=== PATIENT | female | born 1975 | race African-American/Black ===

== ENCOUNTER 2018-09-08 16:00 | Observation (INO) ==
[2018-09-08 17:22] LABS: INR 0.97; PROTIME 13.4 Seconds (11.0-16.0)
[2018-09-08 17:27] LABS: BASO# 0.02 X1000 (0.0-0.2); BASO% 0.3 % (0.0-0.8); EOS# 0.17 X1000 (0.0-0.7); EOS% 2.9 % (0.0-10.0); HEMATOCRIT 35.1 % (37.0-47.0); HEMOGLOBIN 11.6 g/dL (12.0-16.0); IMM GRAN# 0.03 X1000 (0.0-0.04); IMM GRAN% 0.5 % (0.0-0.5); LYMPH# 2.14 X1000 (1.2-3.4); LYMPH% 36.7 % (20.5-51.1); MCH 24.7 PG (27-31); MCV 74.8 FL (81-99); MONO# 0.48 X1000 (0.11-0.59); MONO% 8.2 % (1.7-9.3); MPV 10.6 FL (7.4-10.4); NEUT# 2.99 X1000 (1.4-6.5); NEUT% 51.4 % (42.2-75.2); PLT 333 X1000 (130-400); RBC 4.69 XMIL (4.2-5.4); WBC 5.83 X1000 (4.8-10.8)
[2018-09-08 17:34] LABS: CALCIUM 9.1 mg/dL (8.8-10.2); CREATININE 1.9 mg/dL (0.5-0.9); POTASSIUM 3.8 mmol/L (3.5-5.1); TOTAL BILIRUBIN 0.2 mg/dL (0.20-1.00); TOTAL PROTEIN 7.2 g/dL (6.3-8.3)
[2018-09-08] MEDS ORDERED: NS 500 ML IV ONE (17:47)
[2018-09-08] MEDS ORDERED: REGLAN IV ONE (17:48)
[2018-09-08] MEDS ORDERED: DECADRON IV ONE (17:48)
[2018-09-08] MEDS ORDERED: TORADOL IM ONE (17:48)
--- NOTE | 2018-09-08 17:49 | Diag Imaging Result Doc PS360 ---
EXAM: CHEST-2 VIEWS 09/08/2018 HISTORY: dizziness TECHNIQUE: PA and lateral chest COMMENT: There is no evidence of acute cardiac or pulmonary disease. Compared to 07/06/2018 there has been no significant change. IMPRESSION: No evidence of acute disease. Electronically signed by Derrick Perdomo 09/08/2018 5:47 PM
--- NOTE | 2018-09-08 18:15 | EKG Report ---
Test Performed on : 09/08/2018 4:40:37 PM Test Reason : dizziness Blood Pressure : / mmHG Vent. Rate : 070 BPM Atrial Rate : 070 BPM P-R Int : 146 ms QRS Dur : 118 ms QT Int : 426 ms P-R-T Axes : 036 -20 093 degrees QTc Int : 460 ms Normal sinus rhythm. Possible Left atrial enlargement Left ventricular hypertrophy with QRS widening Inferior infarct , age undetermined Abnormal ECG When compared with ECG of 06-JUL-2018 16:22, Inferior infarct is now present Unconfirmed Result
--- NOTE | 2018-09-08 19:04 | Diag Imaging Result Doc PS360 ---
EXAM: CT HEAD W/O CONTRAST 09/08/2018 HISTORY: dizziness and vomiting TECHNIQUE: This exam was performed using automated exposure control, adjustment of mA or kV according to patient size, and/or use of iterative reconstruction technique. COMMENT: There is subcortical white matter lucency and cortical encephalomalacia present in the left parietal convexity. This was not present at the time the previous study of 07/06/2018. There are old ischemic changes in the area of the right caudate nucleus which were present at the time the previous study. There is a lacune in the basal ganglia region on the right which was apparently present previously. There are some patchy lucencies in the white matter of both hemispheres particularly in the centrum semiovale regions. No evidence of bleed or mass effect is present. The visualized paranasal sinuses are clear. The calvarium is intact. IMPRESSION: Chronic ischemic, changes including a cortical infarct in the left parietal lobe which was not evident at the time the previous study of 07/06/2018. It is possible that this was in the acute phase at the time of the previous study. Electronically signed by Derrick Perdomo 09/08/2018 7:02 PM
[2018-09-08] MEDS ORDERED: NS 1,000 ML IV ONE (21:41)
--- NOTE | 2018-09-09 07:35 | Extremity Venous Study ---
EXAM: Carotid Ultrasound HISTORY: POSSIBLE CVA TECHNIQUE: Carotid Doppler ultrasound COMPARISON: None. FINDINGS: Right: No occlusion or stenosis in the common carotid artery. Mild intimal thickening. No calcified plaque in the bulb. The peak systolic velocity in the internal carotid artery is 51 cm/s. The ICA/CCA ratio 0.75. Antegrade flow in the vertebral artery. Left: No occlusion or stenosis in the common carotid artery. Mild intimal thickening. Mild plaque in the bulb. Peak systolic velocity in the internal carotid artery is 145 cm/s. ICA/CC ratio is 1.07. There is a discrete: Vertebral artery. IMPRESSION: 1.No stenosis or occlusion within either common carotid artery 2.Minimal stenosis in the proximal right internal carotid artery of less than 40% 3.Stenosis in the left bulb between 40 and 59% Electronically signed by Ernesto Palencia 09/09/2018 7:32 AM
[2018-09-09 10:12] LABS: BASO# 0.01 X1000 (0.0-0.2); BASO% 0.1 % (0.0-0.8); HEMOGLOBIN 11.4 g/dL (12.0-16.0); IMM GRAN# 0.03 X1000 (0.0-0.04); IMM GRAN% 0.4 % (0.0-0.5); LYMPH# 1.26 X1000 (1.2-3.4); LYMPH% 15.3 % (20.5-51.1); MCH 24.3 PG (27-31); MCHC 32.6 g/dL (33-37); MCV 74.6 FL (81-99); MONO# 0.17 X1000 (0.11-0.59); MONO% 2.1 % (1.7-9.3); MPV 10.3 FL (7.4-10.4); NEUT# 6.77 X1000 (1.4-6.5); NEUT% 82.1 % (42.2-75.2); PLT 313 X1000 (130-400); RBC 4.69 XMIL (4.2-5.4); WBC 8.24 X1000 (4.8-10.8)
[2018-09-09] MEDS ORDERED: COZAAR PO SCH (10:30)
[2018-09-09 10:35] LABS: CALCIUM 9.1 mg/dL (8.8-10.2); CREATININE 2.2 mg/dL (0.5-0.9); POTASSIUM 4.7 mmol/L (3.5-5.1)
[2018-09-09 11:07] LABS: LYMPHS 12 % (21-51); MONO 3 % (1-9); SEGS 85 % (42-75)
[2018-09-09] MEDS: COREG PO SCH ×2 (11:22→20:55)
[2018-09-09] MEDS: NORVASC PO SCH ×2 (11:23→20:55)
[2018-09-09] MEDS: HUMALOG (PARKWAY) SUBQ SCH ×3 (11:24→20:55)
--- NOTE | 2018-09-09 13:43 | HISTORY AND PHYSICAL ---
PRIMARY CARE PHYSICIAN: Dr. Bassam Pittman. CHIEF COMPLAINT: Nausea, vomiting, weakness and dizziness that began prior to arriving. HISTORY OF PRESENTING ILLNESS: This is a 43-year-old female with an extensive medical history that includes a CVA that occurred in June of this year, a non STEMI that occurred in March of last year. She also has MS, diabetes type 2, and she presents to [facility] ER with symptoms that began prior to arrival of nausea, vomiting, weakness and dizziness. Workup in the emergency room showed a BUN of 26 with a creatinine of 1.9. She has some chronic kidney disease and her baseline is usually around 1.5. A CT of the head showed chronic ischemic changes that included a cortical infarct in the left parietal lobe, which was not evident on the previous study of 07/06/2018, but again she did have her stroke and MRI in June of 2018. We did a carotid Doppler that showed no stenosis or occlusion within either common carotid artery, and a chest x-ray that showed no evidence of acute disease. She was admitted for further evaluation and treatment. PAST MEDICAL HISTORY: Coronary artery disease, MS, and [place] in March of 2018. Chronic kidney disease, diabetes type 2, hypertension, CVA in June of 2018, hyperlipidemia, GERD, and uterine cancer. PAST SURGICAL HISTORY: CABG, heart stent placement x2, , bilateral tubal ligation, and hysterectomy. FAMILY HISTORY: Reviewed and noncontributory. SOCIAL HISTORY: She currently lives at home. Denies any tobacco, alcohol or illicit drug use. ALLERGIES: She has no known drug allergies. HOME MEDICATIONS: 1. She takes Norvasc 5 mg p.o. daily. 2. Carvedilol 25 mg p.o. b.i.d. 3. Hydralazine 100 mg p.o. t.i.d. 4. Lantus 10 units subcutaneous daily. 5. Cozaar 100 mg p.o. daily. LABORATORY DATA: White blood cell count of 5.83, hemoglobin 11.6, hematocrit 35.1, and platelets 333,000. PT and INR of 13.4 and 0.97. Sodium 140, potassium 3.8, chloride 101, CO2 23, BUN of 26, creatinine 1.9, and glucose 134. Cardiac enzyme was negative. ProBNP of [address] of the head that showed chronic ischemic changes including a cortical infarct in the left parietal lobe, which was not evident at the time of the previous study of 07/06/2018, but again she did have a stroke confirmed in June of 2018. Chest x-ray showed no evidence of acute disease. Carotid Doppler showed no stenosis or occlusion within either common carotid artery. EKG showed normal sinus rhythm at 70. REVIEW OF SYSTEMS: She denied any fever, chills, or blurred vision. She was positive for dizziness and generalized weakness. Denied any chest pain, coughing, or shortness of breath. She was positive for nausea and vomiting, but denied any abdominal pain, constipation, diarrhea, burning or hurting with urination. PHYSICAL EXAMINATION: VITAL SIGNS: On arrival, she had a temperature of 98.6 degrees, pulse 72, respirations 17, blood pressure 123/78 and saturating 99% on room air. GENERAL: This is a 43-year-old female who is lying in the bed and answers questions appropriately. HEENT: Normocephalic, atraumatic. Normal ENT inspection. Oropharynx and nares are clear. EYES: Pupils are equal, round, and reactive to light and accommodation. Extraocular movements are intact. NECK: Normal inspection. Normal range of motion. LUNGS: Clear to auscultation bilaterally with equal lung expansion and chest wall movement. HEART: Regular rate and rhythm. No murmurs, rubs, or gallops. ABDOMEN: Soft, nontender, and nondistended. Bowel sounds are present x4 quadrants. 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 NEUROLOGICAL: Cranial nerves 2-12 are grossly intact except for her right-sided hemiparesis status post her stroke. ASSESSMENT: 1. Generalized weakness. 2. Acute kidney injury on chronic kidney disease. 3. Nausea and vomiting, now resolved. 4. Diabetes type 2. PLAN: She was admitted to the medical unit at [place], and placed on telemetry. We will check an echocardiogram. She is on neuro checks q.4 hours telemetry. I am going to place her on a diabetic liquid diet. We will make sure that she does not have any further nausea or vomiting, and then I will advance as tolerated. She has been receiving normal saline at 75 mL an hour. We will continue her home medications. I am going to place her on pattern blood sugars with sliding scale insulin. Advance diet again as tolerated. Further orders after seen by attending. Dictated by AZUCENA Taveras for Joshua Hinton MD cc: AZUCENA Taveras MD Malcolm R. Hendricks, MD
[2018-09-09] MEDS ORDERED: NS 1,000 ML IV ONE (15:10)
--- NOTE | 2018-09-09 16:02 | Diag Imaging Result Doc PS360 ---
EXAM: ABDOMEN FLAT/UPRIGHT HISTORY: pain TECHNIQUE: Portable upright abdomen single view COMPARISON: None. FINDINGS: The bowel loops are not dilated. No organomegaly. No abnormal abdominal calcifications. There are sternal wires. The lower lungs are clear. IMPRESSION: Negative exam. Electronically signed by Ernesto Palencia 09/09/2018 4:00 PM
[2018-09-09] MEDS: APRESOLINE PO SCH ×2 (16:41→16:43)
--- NOTE | 2018-09-09 16:51 | PROGRESS NOTE ---
DATE: 09/09/2018 HISTORY AND PHYSICAL ADDENDUM: The patient is complicated. She has a CVA, CAD, came in with weakness and dizziness. Her creatinine was up a bit. She has known heart failure, known CAD, known CVA. She came in with throwing up and not being able to tolerate much p.o. PHYSICAL EXAMINATION: She appears to be not volume depleted. She seems like she is pretty stable. She is tolerating p.o. now. Her abdominal exam is benign. Workup in the ER really was unremarkable, but her main complaints were abdominal although that has since progressed. She is feeling a little bit better. PROBLEM LIST: 1. Gastrointestinal: Possible constipation, gastroparesis. We will continue to follow. 2. Acute on chronic renal failure. We will continue electrolytes. We will hold on anything nephrotoxic for the time being. Her kidney function is a little worse today, so I am going to give her a little bit more treatment fluids and we will follow. Advance her diet. We will also check plain films. 3. Diabetes appears to be fairly well controlled. I do not have an A1c on her at this point, so we will try to get that and see how she does. 4. Disposition. If improving or stable, can likely discharge tomorrow. cc: Joshua Hinton MD
[2018-09-09] MEDS ORDERED: NORCO-7.5 PO PRN (20:29)
[2018-09-09] MEDS: HEPARIN SUBQ SCH (20:54)
[2018-09-09 21:17] LABS: UR CREAT RANDOM 109.8 mg/dL (11-20); UR PROT RANDOM 13.2 mg/dL
[2018-09-10] MEDS: HUMALOG (PARKWAY) SUBQ SCH ×3 (06:09→17:29)
[2018-09-10 08:24] LABS: BASO# 0.02 X1000 (0.0-0.2); BASO% 0.2 % (0.0-0.8); EOS# 0.04 X1000 (0.0-0.7); EOS% 0.5 % (0.0-10.0); HEMATOCRIT 32.9 % (37.0-47.0); HEMOGLOBIN 10.5 g/dL (12.0-16.0); IMM GRAN# 0.04 X1000 (0.0-0.04); IMM GRAN% 0.5 % (0.0-0.5); LYMPH# 3.42 X1000 (1.2-3.4); LYMPH% 40.6 % (20.5-51.1); MCH 23.9 PG (27-31); MCHC 31.9 g/dL (33-37); MCV 74.9 FL (81-99); MONO# 0.61 X1000 (0.11-0.59); MONO% 7.2 % (1.7-9.3); MPV 10.4 FL (7.4-10.4); PLT 325 X1000 (130-400); RBC 4.39 XMIL (4.2-5.4); RDW 16.1 % (11.5-14.5); WBC 8.43 X1000 (4.8-10.8)
[2018-09-10 08:28] LABS: CALCIUM 8.9 mg/dL (8.8-10.2); POTASSIUM 3.9 mmol/L (3.5-5.1)
[2018-09-10 08:34] LABS: HEMOGLOBIN A1C 7.2 % (4.8-6.0)
[2018-09-10] MEDS: APRESOLINE PO SCH ×3 (08:55→17:32)
[2018-09-10] MEDS: HEPARIN SUBQ SCH (08:55)
[2018-09-10] MEDS: COREG PO SCH (08:55)
[2018-09-10] MEDS: NORVASC PO SCH (08:56)
[2018-09-10] MEDS ORDERED: LANTUS INSULIN SUBQ SCH (09:00)
[2018-09-10 15:28] VITALS: BP 141/70
--- NOTE | 2018-09-11 15:00 | DISCHARGE SUMMARY ---
ADMISSION DATE: 09/08/2018 DISCHARGE DATE: 09/10/2018 DISCHARGE DIAGNOSES: 1. Gastritis. 2. Nausea and vomiting. 3. Acute on chronic renal failure. 4. Type 2 diabetes. BRIEF SUMMARY: Briefly, patient came in, a 43-year-old female with recent CVA, non STEMI MS. I think she is essentially bed bound. In any case, the patient came in with throwing up and weakness. Her creatinine was up to 1.9 which is usually in the below 1.6 kind of range. She was given gentle hydration and improved. Her creatinine though the next day was 2.2. Her hemoglobin and hematocrit has been stable this whole time. Discharge condition is stable. Her LDL is only 112. She seems to be doing okay. There was concern over a new stroke, but the subsequent MRI showed stroke but it was a stroke that was developing at that time. In any case, patient is at her baseline. The following day her abdominal films were impressive. She was tolerating p.o. without difficulty. Her creatinine was down to 2. She was discharged on her regular medications. She seems to be doing okay without really any particular intervention and seems stable enough to go home. We discussed with the family and explained to them that she did not have a new stroke because that was what was told to them in the ER, but in any case we reviewed imaging and discussed the truth of it, but any case the patient stabilized and can go home. Follow up with her PCP suha Pittman. DISCHARGE MEDICATIONS: Hydralazine 100 t.i.d., Coreg 25 b.i.d., Cozaar 100 daily, glargine 10 daily, Norvasc 5 b.i.d. I think this is an observation discharge. cc: MD Bassam Vásquez MD MTDD
== END 2018-09-10 20:15 | disposition home health service (06) ==
LOC: P.ED 16:00 → P.MEDSURG 22:16 → INTOOBSV 22:16 → P.MEDSURG 09-09 07:56
PROVIDERS: ADMIT Internal Medicine
CPT/HCPCS: 70450; 71020; 71046; 74019; 74020; 80048; 80053; 82550; 82570; 82948; 83036; 83721; 83880; 84156; 84300; 84484; 85025; 85610; 85730; 93005; 93306; 93880; 96361; 96372; 96374; 96375; 99285; A9270; J1644; J1815; J1885; J2765; J7030; J7040; XXXXX

== ENCOUNTER 2019-07-14 17:30 | Inpatient (IN) ==
[2019-07-14] MEDS ORDERED: NS 1,000 ML IV PRN (17:44)
--- NOTE | 2019-07-14 18:00 | EKG Report ---
Test Performed on : 07/14/2019 5:46:15 PM Test Reason : Stroke like symptoms Blood Pressure : / mmHG Vent. Rate : 071 BPM Atrial Rate : 071 BPM P-R Int : 154 ms QRS Dur : 126 ms QT Int : 422 ms P-R-T Axes : 037 -19 252 degrees QTc Int : 458 ms Normal sinus rhythm. Possible Left atrial enlargement Left ventricular hypertrophy with QRS widening Inferior infarct (cited on or before 21-APR-2018) Abnormal ECG When compared with ECG of 14-DEC-2018 11:05, Nonspecific T wave abnormality, worse in Inferior leads Nonspecific T wave abnormality has replaced inverted T waves in Lateral leads Unconfirmed Result
--- NOTE | 2019-07-14 18:17 | PROVIDER DOCUMENTATION ---
HPI-General Adult - General Chief Complaint: Stroke-Like Symptoms Stated Complaint: SLURRED SPEECH,WEAKMESS Time Seen by Provider: 07/14/19 17:43 Source: patient Allergies/Adverse Reactions: Patient Allergies Allergy/AdvReac Type Severity Reaction Status Date / Time No Known Allergies Allergy Verified 07/14/19 18:59 Home Medications: Home Medication List Medication Instructions Recorded Confirmed Last Taken Type Amlodipine [Norvasc] 5 mg PO DAILY 09/08/18 07/14/19 Unknown History Carvedilol 25 mg PO BID 09/08/18 07/14/19 Unknown History Insulin Glargine,Hum.rec.anlog 10 units SQ DAILY 09/08/18 07/14/19 Unknown History [Lantus Solostar] ATORVAstatin [Lipitor] 80 mg PO QHS 12/14/18 07/14/19 Unknown History Losartan [Cozaar] 100 mg PO DAILY 12/14/18 07/14/19 Unknown History Pantoprazole [Protonix] 40 mg PO DAILY@0700 12/14/18 07/14/19 Unknown History Isosorbide Mononitrate [Isosorbide 60 mg PO QAM 07/14/19 07/14/19 Unknown Histor y Mononitrate ER] Sennosides [Senokot] 1 ea PO DAILY PRN PRN 07/14/19 07/14/19 Unknown History - History of Present Illness -Gen Adult Nature of Presenting Problems: Patient reports onset of weakness and slurred speech yesterday. Reports history of stroke. patient stated denied any symptoms except generalizes weakness, and more slurry speech than usual, patient denied chest pain or shortness of breath. no fever or upper respiratory symptoms. No nausea, vomiting or diarrhea was reported. Location of Pain/Injury: reports: other (slurry speech) Pain Radiation: reports: no radiation Severity: reports: moderate Onset/Duration: reports: gradual, last night Timing: reports: still present, improving Context/Activities at Onset: reports: other (history of DM and old CVA) Modifying Factors: improves with: nothing Associated Symptoms: reports: denies symptoms Similar Symptoms Previously?: Yes Recently seen or treated by another doctor?: No Review of Systems - Adult - REVIEW OF SYSTEMS - ADULT Constitutional: reports: jeevan. denies: fever, night sweats Eyes: reports: no symptoms reported Ears, Nose, Mouth & Throat: reports: no symptoms reported Cardiovascular: reports: no symptoms reported Respiratory: reports: no symptoms reported Gastrointestinal: reports: no symptoms reported Genitourinary: reports: incontinence Musculoskeletal: reports: other (right upper and lower extremity paralysis due to old CVA) Neurological: reports: see HPI, slurred speech Psychiatric: reports: no symptoms reported Endocrine: reports: no symptoms reported Hematologic/Lymphatic: reports: no symptoms reported Allergic/Immunologic: reports: no symptoms reported Past History - Adult - PAST MEDICAL HISTORY-ADULT Review of Records: reports: Nursing Assessment Review Major Childhood Illnesses: reports: denies history Cardiovascular: reports: arrhythmia (irregular heart beat), CAD, HTN, hyperlipidemia, [place] Respiratory: reports: denies history Gastrointestinal: reports: GERD Obstetrical/Gynecological: reports: uterine/ovarian cancer Genitourinary: reports: denies history Musculoskeletal: reports: denies history Neurological: reports: CVA Psychiatric: reports: denies history Endocrine/Immune: reports: Diabetes Other Conditions: reports: denies history - PRIOR SURGERIES/PROCEDURES Surgical/Procedure History: reports: CABG (triple), cardiac stent (x2), hysterectomy, BTL, - IMMUNIZATION STATUS Childhood Immunizations: See Nurse Assessment Flu Vaccine: See Nurse Assessment - FAMILY HISTORY Family History: reviewed, not pertinent Physical Exam-General - PHYSICAL EXAM-ADULT Initial Vital Signs Reviewed: Yes - CONSTITUTIONAL General Appearance: alert - EYES Eyes: pink conjunctivae. negative: anisocoria - HEAD, EARS, NOSE, MOUTH & THROAT HENMT: normocephalic/atraumatic - NECK Neck: non-tender, normal inspection. negative: C-spine tenderness - RESPIRATORY Respiratory: chest non-tender, lungs clear, normal breath sounds, no pleuratic chest pain - CARDIOVASCULAR Cardiovascular: normal peripheral pulses, regular rate, rhythm, no edema, no gallop, no JVD - GASTROINTESTINAL (ABDOMEN) Abdominal Exam: normal bowel sounds, non tender, soft, no organomegaly, no pulsatile mass - LYMPHATIC Lymphatic: no adenopathy - MUSCULOSKELETAL Back Exam: no CVA tenderness, no vertebral tenderness Extremity: other (right arm contracture, right side hemiparesis due to old CVA) - SKIN Integumentary: normal color, normal turgor - NEUROLOGIC Neurologic: other (right side hemiparesis due to old CVA) - PSYCHIATRIC Psych/Mental Status: normal mood/affect Progress - PLAN OF CARE/RESULTS Progress/Plan/Lab Results: Vital Signs - 8 hr 07/14/19 17:48 Temperature 99.1 F Pulse Rate 64 Respiratory Rate 18 Blood Pressure 155/87 O2 Sat by Pulse Oximetry 99 Orders Category Date Time Status Cardiac Monitoring DIRECTED Care 07/14/19 17:44 Active Finger Stick Blood Sugar (ED) DIRECTED Care 07/14/19 17:44 Active Oxygen Therapy- ED Nursing DIRECTED Care 07/14/19 17:44 Active Saline Loc NOW Care 07/14/19 17:44 Active CHEST-PORTABLE [RAD] Stat Exams 07/14/19 17:[address] HEAD W/O CONTRAST [CT] Stat Exams 07/14/19 17:44 Taken CBC WITH ELECTRONIC DIFF [HEME] Stat Lab 07/14/19 17:44 Uncollected COMPREHENSIVE METABOLIC PANEL [CHEM] Stat Lab 07/14/19 17:44 Uncollected PROTIME WITH INR [COAG] Stat Lab 07/14/19 17:44 Uncollected PTT [COAG] Stat Lab 07/14/19 17:44 Uncollected TROPONIN T HIGH SENSITIVITY Stat Lab 07/14/19 17:44 Uncollected URINALYSIS W/POSS RFLX CULT [URINALYSIS] Stat Lab 07/14/19 17:44 Uncollected URINE DRUG SCREEN Stat Lab 07/14/19 17:44 Uncollected 0.9% Sodium Chloride Inj [Ns] 1,000 ml Med 07/14/19 17:44 Active IV 999 mls/hr EKG [EKG] Stat Ther 07/14/19 17:44 Draft Result Diagrams: 07/14/19 18:19 07/14/19 18:19 - REASSESSMENT Reassessment #1 Time Reassessed: 20:10 Status: improving (Seen and examined by me. Case discussed with Dr. Mckeon at shift change.) - EKG 1 Time of EKG reading by physician:: 17:46 Rate: 71 Rhythm: sinus rhythm [place]: normal CA Interval: normal ST Wave: non-specific ST changes (left ventricular hypertrophy, widening QRS, non-specific ST change) - XRAY 1 XRAY Study: Chest Impression: See EMR Report ( EXAM: CHEST-PORTABLE INDICATION: stroke like symptoms TECHNIQUE: One view COMPARISON: 09/08/2018 FINDINGS: The lungs are grossly clear. There is no discrete pleural fluid collection or pneumothorax. There are stable median sternotomy wires and mild cardiomegaly. Central vasculature is unremarkable. IMPRESSION: Stable mild cardiomegaly. No evidence of acute chest pathology. Electronically signed by Major Curry 07/14/2019 6:45 PM 07/14/19 1845 Interpreting Physician: Major Curry MD Dictated Date/Time: 07/14/19 1844 cc: Annette Mckeon MD; Bassam Pittman MD) - CT/MRI 1 CT Study: Head Impression: Abnormal, See EMR Report ( EXAM: CT HEAD W/O CONTRAST INDICATION: stroke like symptoms TECHNIQUE: This exam was performed using automated exposure control, adjustment of mA or kV according to patient size, and/or use of iterative reconstruction technique. COMPARISON: 09/08/2018 FINDINGS: There is new focal low-attenuation in the right parietal lobe extending from the cortex to the right lateral ventricle. An acute or subacute infarct cannot be excluded. There is also low attenuation in the left frontal lobe that was present on the previous study suggesting encephalomalacia. There is stable focal encephalomalacia adjacent to the right caudate head and in the right cerebellar hemisphere. There is no discrete intracranial mass, mass effect, or intracranial hemorrhage. The surrounding soft tissues and bony structures are essentially unremarkable. IMPRESSION: Multifocal encephalomalacia that can also be seen on the previous study. However, there is a new focus of low attenuation in the right parietal lobe that is not seen previously. An acute or subacute infarct cannot be excluded. Electronically signed by Major Curry 07/14/2019 6:29 PM 07/14/19 1829 Interpreting Physician: Major Curry MD Dictated Date/Time: 07/14/19 1826 cc: Annette Mckeon MD; Bassam Pittman MD) - CONSULTS/PCP/HOSPITALIST Notification #1 *Consult/PCP/Hospitalist*: Norberto alejandra at 2012 Time Discussed: 20:21 Consult Disposition: Will see in ED, Admit - CHANGE OF SHIFT REPORT (ED Provider) 1 Report Given and Care Transferred to:: Dr Headley Time of Transfer: 19:00 Items Pending: Labs Departure - Departure Date of Disposition Decision: 07/14/19 Time of Disposition Decision: 20:18 DIAGNOSIS: Type 1 diabetes mellitus with hyperglycemia, with long-term current use of insu courtney CVA (cerebrovascular accident) Qualifiers: CVA mechanism: thrombosis Precerebral and cerebral artery: other cerebral ar anna Qualified Code(s): I63.39 - Cerebral infarction due to thrombosis of other cerebral artery Disposition: ADMITTED INPATIENT 09 Certified Medical Emergency: Emergent Condition: Fair Referrals and Follow-Ups: Bassam Pittman MD [Primary Care Provider] - - Critical Care Note This patient required my direct & personal management of CC.: No Attestation - Physician/ RICHARD Attestation Patient care was provided by Advanced Practice Provider:: No The physician spent face to face time with patient:: Yes Advanced Practice Provider documentation review:: Supervising physician onsite and consulted in the evaluation and care of this patient. The physician did have a face to face encounter with the patient. - NIH Stroke Scale NIH Type: Initial Evaluation (by me at 2016) Level of Consciousness: 0-Alert LOC Questions (ask month and age): 0-Answers Both Correctly LOC Commands (ask to open & close eyes;make a fist, let go): 0-Obeys Both Correctly Best Gaze (horizontal eye movement): 0-Normal Visual (use finger movement, counting or visual threat): 0-No Visual Loss Facial Palsy (show teeth or raise eyebrows & close eyes tght: 1-Minor Paralysis Motor Function-left arm: 0-Normal Motor Function-right arm: 4-No Movement Motor Function-left le-Normal Motor Function-right le-No Effort Against Downs Limb Ataxia(pbylip-cvfb-lqnsvc, or heel to thomas): 0-No Ataxia Sensory(pin prick to face,arms,trunk,legs-compare side/side): 0-No Ataxia Best Language(name item/read sentence.Ex-Down to Earth): 0-No Aphasia Dysarthria(Pt read words or say words Ex.Mama,Tip-Top,Thanks: 1-Mild-Mod Slurring Words Extinction and Inattention: 0-Normal NIH Total Score: 9 Modified [place] Score Criteria: 4-moderately severe disability Stroke tPA Guidelines - Inclusion Criteria for IV tPA 18 years old or older: Yes Ischemic stroke with measurable deficit: Yes Onset <3 hours ago *OR* 3-4.5 hours ago: No - Exclusion Criteria for IV tPA Evidence of intracranial hemorrhage on CT: No Presentation suggest SAH: No CT reveals defined area of hypodensity: Yes Evidence of AVM, neoplasm, aneurysm: No Seizure at stroke onset: No Active internal bleeding or acute trauma: No Platelet Count Less Than 100,000: No Heparin Within Last 48 HRS (PTT >Lab normal limits): No INR > 1.7 (warfarin use): No Use IIB/IIIA inhibitors within 24 hours: No Serious Head Trauma Within Last 3 Months: No Arterial Puncture Within Last 7 Days: No Lumbar Puncture Within Last 7 Days: No Repeated systolic Blood Pressure >185 or Diastolic >110: No - Additional Exclusion Criteria for IV tPA Currently on Coumadin: No Patient older than 80: No Prior stroke and diabetes: Yes Baseline NIHSS score > 25: No - Relative Contraindications to IV tPA CT reveals extensive area of infarct (>1/3 MCA territory): No Minor or rapidly improving stroke symptoms: No Major Surgery or Serious Trauma In Previous 14 Days: No AMI within 3 months: No Gastrointestinal or Urinary Tract hemorrhage in Past 21 Days: No Post - AMI pericarditis: No Blood Glucose Less Than 50 mg/dl or Greater Than 400 mg/dl: No - Consultation Candidate for:: NOT A CANDIDATE (too many exclusions)
--- NOTE | 2019-07-14 18:32 | Diag Imaging Result Doc PS360 ---
EXAM: CT HEAD W/O CONTRAST INDICATION: stroke like symptoms TECHNIQUE: This exam was performed using automated exposure control, adjustment of mA or kV according to patient size, and/or use of iterative reconstruction technique. COMPARISON: 09/08/2018 FINDINGS: There is new focal low-attenuation in the right parietal lobe extending from the cortex to the right lateral ventricle. An acute or subacute infarct cannot be excluded. There is also low attenuation in the left frontal lobe that was present on the previous study suggesting encephalomalacia. There is stable focal encephalomalacia adjacent to the right caudate head and in the right cerebellar hemisphere. There is no discrete intracranial mass, mass effect, or intracranial hemorrhage. The surrounding soft tissues and bony structures are essentially unremarkable. IMPRESSION: Multifocal encephalomalacia that can also be seen on the previous study. However, there is a new focus of low attenuation in the right parietal lobe that is not seen previously. An acute or subacute infarct cannot be excluded. Electronically signed by Major Curry 07/14/2019 6:29 PM
[2019-07-14 18:39] LABS: BASO# 0.03 X1000 (0.0-0.2); BASO% 0.4 % (0.0-0.8); EOS# 0.16 X1000 (0.0-0.7); EOS% 2.4 % (0.0-10.0); HEMATOCRIT 37.9 % (37.0-47.0); HEMOGLOBIN 11.8 g/dL (12.0-16.0); IMM GRAN# 0.02 X1000 (0.0-0.04); IMM GRAN% 0.3 % (0.0-0.5); LYMPH# 2.63 X1000 (1.2-3.4); LYMPH% 38.7 % (20.5-51.1); MCH 25.6 PG (27-31); MCHC 31.1 g/dL (33-37); MCV 82.2 FL (81-99); MONO# 0.76 X1000 (0.11-0.59); MONO% 11.2 % (1.7-9.3); MPV 11.6 FL (7.4-10.4); PLT 205 X1000 (130-400); RBC 4.61 XMIL (4.2-5.4); RDW 14.9 % (11.5-14.5)
[2019-07-14 18:46] LABS: INR 1.01; PROTIME 13.4 Seconds (11.0-16.0)
[2019-07-14 18:47] LABS: PTT 30.6 Seconds (22.3-41.8)
--- NOTE | 2019-07-14 18:47 | Diag Imaging Result Doc PS360 ---
EXAM: CHEST-PORTABLE INDICATION: stroke like symptoms TECHNIQUE: One view COMPARISON: 09/08/2018 FINDINGS: The lungs are grossly clear. There is no discrete pleural fluid collection or pneumothorax. There are stable median sternotomy wires and mild cardiomegaly. Central vasculature is unremarkable. IMPRESSION: Stable mild cardiomegaly. No evidence of acute chest pathology. Electronically signed by Major Curry 07/14/2019 6:45 PM
[2019-07-14 19:03] LABS: ALB/GLOB RATIO 1.3; ALBUMIN 3.7 g/dL (3.5-5.0); CALCIUM 8.9 mg/dL (8.8-10.2); CREATININE 1.8 mg/dL (0.5-0.9); TOTAL BILIRUBIN 0.36 mg/dL (0.20-1.00); TOTAL PROTEIN 6.6 g/dL (6.3-8.3)
[2019-07-14 20:14] LABS: URINE SOURCE CATH
[2019-07-14] MEDS ORDERED: ASPIRIN PO ONE (20:20)
[2019-07-14 20:28] LABS: UR AMPHETAMINES QUAL NONE DETECTED (NONE DETECT); UR BARBITUATES QUAL NONE DETECTED (NONE DETECT); UR BENZODIAZEPIN QUAL NONE DETECTED (NONE DETECT); UR CANNABINOIDS QUAL NONE DETECTED (NONE DETECT); UR COCAINE QUAL NONE DETECTED (NONE DETECT); UR METHADONE QUAL NONE DETECTED (NONE DETECT); UR OPIATES QUAL NONE DETECTED (NONE DETECT); UR OXYCODONE QUAL NONE DETECTED (NONE DETECT); UR PCP QUAL NONE DETECTED (NONE DETECT)
[2019-07-14 20:53] LABS: BILIRUBIN URINE NEGATIVE (NEGATIVE); BLOOD URINE TRACE (NEGATIVE); COLOR YELLOW; GLUCOSE URINE NEGATIVE (NEGATIVE); KETONE URINE NEGATIVE (NEGATIVE); PH URINE 6.5; PROTEIN URINE NEGATIVE (NEGATIVE); TURBIDITY URINE HAZY (CLEAR)
[2019-07-14 20:54] LABS: LEUKOCYTES URINE LARGE (NEGATIVE); NITRITE URINE NEGATIVE (NEGATIVE); UR EPITHELIAL CELLS >10 /HPF (<10); URINE BACTERIA 3+ /HPF; URINE RBC <10 /HPF (<10); URINE WBC TNTC /HPF (<10); UROBILINOGEN URINE NORMAL (NORMAL)
[2019-07-14] MEDS ORDERED: SENOKOT PO PRN (20:56)
[2019-07-14] MEDS ORDERED: ZOFRAN IV PRN (22:35)
[2019-07-14] MEDS ORDERED: TYLENOL PO PRN (22:35)
[2019-07-14 23:16] LABS: HEMOGLOBIN A1C 5.4 % (4.8-6.0)
[2019-07-14] MEDS: LOVENOX SUBQ SCH (23:44)
[2019-07-14] MEDS: COREG PO SCH (23:44)
[2019-07-14] MEDS: LIPITOR PO SCH (23:44)
[2019-07-15] MEDS: ROCEPHIN 1 GM in NS 50 ML IV SCH (01:37)
[2019-07-15] MEDS: PROTONIX PO SCH (06:31)
[2019-07-15 06:43] LABS: BASO# 0.03 X1000 (0.0-0.2); BASO% 0.4 % (0.0-0.8); EOS# 0.19 X1000 (0.0-0.7); EOS% 2.8 % (0.0-10.0); HEMATOCRIT 38.8 % (37.0-47.0); HEMOGLOBIN 12.2 g/dL (12.0-16.0); LYMPH# 3.09 X1000 (1.2-3.4); LYMPH% 44.8 % (20.5-51.1); MCH 25.7 PG (27-31); MCHC 31.4 g/dL (33-37); MCV 81.7 FL (81-99); MONO% 7.2 % (1.7-9.3); MPV 11.3 FL (7.4-10.4); NEUT# 3.09 X1000 (1.4-6.5); NEUT% 44.8 % (42.2-75.2); PLT 213 X1000 (130-400); RBC 4.75 XMIL (4.2-5.4); RDW 14.7 % (11.5-14.5)
[2019-07-15 06:59] LABS: CALCIUM 8.8 mg/dL (8.8-10.2); CREATININE 1.4 mg/dL (0.5-0.9); POTASSIUM 4.2 mmol/L (3.5-5.1)
--- NOTE | 2019-07-15 07:08 | HISTORY AND PHYSICAL ---
CHIEF COMPLAINT: Slurring of speech. HISTORY OF PRESENT ILLNESS: This is a 44-year-old -[place] female with a fairly extensive past medical history that includes CVA, non-STEMI, MS, diabetes mellitus type 2, coronary artery disease, chronic kidney disease stage 3, hypertension, hyperlipidemia, GERD, uterine cancer. She comes in after having an onset of weakness and slurring of speech. She does have a history of CVA as noted with some right-sided hemiparesis due to the old CVA and right arm contracture, but the slurring of speech and weakness was new. This had resolved by the time I interviewed the patient. She does still have her old deficits obviously. She will be admitted for further evaluation and treatment. PAST MEDICAL HISTORY: See HPI. PREVIOUS SURGICAL HISTORY: 1. CABG. 2. Heart stent placement x2. 3. section. 4. Bilateral tubal ligation. 5. Hysterectomy. FAMILY HISTORY: Positive for coronary artery disease and diabetes mellitus. SOCIAL HISTORY: Currently lives at home. No tobacco, alcohol or illicit drugs. ALLERGIES: No known drug allergies. HOME MEDICATIONS: 1. Norvasc 5 mg p.o. daily. 2. Atorvastatin 80 mg p.o. at bedtime. 3. Carvedilol 25 mg p.o. b.i.d. 4. Lantus 10 units subcu daily. 5. Isosorbide 60 mg p.o. q.a.m. 6. Losartan 100 mg p.o. daily. 7. Protonix 40 mg p.o. daily. 8. Senokot 1 p.o. daily p.r.n. REVIEW OF SYSTEMS: Fourteen point review of systems conducted with the patient. Pertinent positives listed above in the HPI. All other systems reviewed and found to be negative. PHYSICAL EXAMINATION: VITAL SIGNS: Temperature 98.5 degrees, pulse 67, respirations 18, blood pressure 169/99, oxygen saturation 100% on room air. GENERAL: A 44-year-old -[place] female lying in the ER stretcher. Answers all questions appropriately. Alert and oriented x3. HEENT: Head is atraumatic, normocephalic. Pupils equal, round and reactive to light. Extraocular eye movements intact. Sclerae anicteric. Conjunctivae pink. Oral mucosa is moist. NECK: Supple. No JVD. No thyromegaly. Trachea is midline. No cervical lymphadenopathy. CARDIAC: S1, S2 appreciated. No murmurs, gallops, rubs. LUNGS: Clear to auscultation bilaterally. No rhonchi, wheezes or rales. Symmetric rise and fall of respirations. ABDOMEN: Soft, nondistended, nontender. Bowel sounds present in all 4 quadrants. Normoactive. No pulsatile mass. No organomegaly. EXTREMITIES: Right-sided hemiparesis with right arm contracture. Able to move left side without difficulty. NEUROLOGICAL: Cranial nerves 2-12 grossly intact other than the right hemiparesis. No slurring of speech. No facial asymmetry. DIAGNOSTIC DATA: CT of the head shows multifocal encephalomalacia that can be seen on previous study; however, there is a new focus of low attenuation in the right parietal lobe that is not seen previously and acute or subacute infarct cannot be excluded. LABORATORY DATA: WBC is 6.80, hemoglobin 11.8, hematocrit 37.9, platelet count 205,000. Sodium 142, potassium 5, chloride 107, carbon dioxide 23, BUN 26, creatinine 1.8, glucose 108. Urine leukocyte esterase positive, too numerous to count WBCs, 3+ bacteria; however, it had greater than 10 epithelial cells. ASSESSMENT AND PLAN: 1. CVA versus TIA. 2. Chronic kidney disease stage 3. 3. Diabetes mellitus. 4. Hypertension. 5. Urinary tract infection. PLAN: Admit patient to the medical floor. MRI of brain when available. Continue antihypertensives but allow for permissive hypertension. Lovenox 40 mg subcu q.24 hours. Continue insulin with fingerstick blood sugars before meals and at bedtime. Check a lipid profile. Continue atorvastatin. Rocephin 1 gram IV q.24 hours. Further recommendations per patient's clinical course. Dictated by AZUCENA Layton for Joseph Thornton MD I have performed a face to face diagnostic evaluation. Labs/Xrays- reviewed, Exam- Chest- clear, CV- regular, Abd- soft.Neuro- Rt hemiparesis. A/P- Suspected TIA- r/o CVA- Admit, ASA, Neurology consult, MRI. Dr. Thornton cc: AZUCENA Layton MD [facility]
[2019-07-15] MEDS: NORVASC PO SCH (08:15)
[2019-07-15] MEDS: IMDUR PO SCH (08:15)
[2019-07-15] MEDS: COREG PO SCH ×2 (08:15→22:01)
[2019-07-15] MEDS: COZAAR PO SCH (08:15)
[2019-07-15] MEDS: LANTUS INSULIN SUBQ SCH (10:20)
[2019-07-15] MEDS: NS 1,000 ML IV SCH (19:02)
--- NOTE | 2019-07-15 19:04 | PROGRESS NOTE ---
DATE: 07/15/2019 SUBJECTIVE: The patient has no major complaints. I am not sure how far off baseline she is. OBJECTIVE: Blood pressure 122/67, heart rate of 60, respiratory rate of 14, temperature 98 degrees, 98% on room air.Cardiovascular: Regular rate and rhythm. Pulmonary: Bilateral breath sounds, clear to auscultation. GI: Soft, nontender, nondistended. Bowel sounds are positive. LABORATORY DATA: White count 6, hemoglobin and hematocrit 12 and 38, platelets 213,000. Creatinine is 1.4. ASSESSMENT AND PLAN: 1. Cerebrovascular accident versus transient ischemic attack. We will not get an MRI until Wednesday, so I am not quite sure how off she is from baseline. It does look like she has persistent right-sided hemiparesis, but that is not new; that is an old finding. She is slurring her speech a bit, but it is not that focal. We will continue to follow. 2. Urinary tract infection, which may be causing all of this. She is on Rocephin. Waiting on culture data. 3. Chronic renal failure. We will continue to monitor. Maybe gentle hydration. 4. Disposition pending her clinical status. I anticipate discharge hopefully in the next couple of days, pending her MRI. We will continue to follow. cc: Joshua Hinton MD
[2019-07-15] MEDS: LOVENOX SUBQ SCH (22:01)
[2019-07-15] MEDS: LIPITOR PO SCH (22:01)
[2019-07-16] MEDS: ROCEPHIN 1 GM in NS 50 ML IV SCH (01:05)
[2019-07-16 05:40] LABS: BASO# 0.04 X1000 (0.0-0.2); BASO% 0.6 % (0.0-0.8); EOS# 0.16 X1000 (0.0-0.7); EOS% 2.5 % (0.0-10.0); HEMATOCRIT 36.9 % (37.0-47.0); HEMOGLOBIN 11.7 g/dL (12.0-16.0); IMM GRAN# 0.02 X1000 (0.0-0.04); IMM GRAN% 0.3 % (0.0-0.5); LYMPH# 2.91 X1000 (1.2-3.4); LYMPH% 45.5 % (20.5-51.1); MCH 25.9 PG (27-31); MCHC 31.7 g/dL (33-37); MCV 81.8 FL (81-99); MONO# 0.51 X1000 (0.11-0.59); MPV 11.7 FL (7.4-10.4); NEUT# 2.76 X1000 (1.4-6.5); NEUT% 43.1 % (42.2-75.2); PLT 197 X1000 (130-400); RBC 4.51 XMIL (4.2-5.4); RDW 14.8 % (11.5-14.5)
[2019-07-16 06:05] LABS: CALCIUM 8.7 mg/dL (8.8-10.2); CREATININE 1.5 mg/dL (0.5-0.9); MAGNESIUM 1.8 mg/dL (1.5-2.7)
[2019-07-16] MEDS: PROTONIX PO SCH (08:18)
[2019-07-16] MEDS: COREG PO SCH ×2 (08:18→21:00)
[2019-07-16] MEDS: NORVASC PO SCH (08:18)
[2019-07-16] MEDS: COZAAR PO SCH (08:19)
[2019-07-16] MEDS: IMDUR PO SCH (08:19)
[2019-07-16] MEDS: LANTUS INSULIN SUBQ SCH (08:22)
[2019-07-16] MEDS: NS 1,000 ML IV SCH ×2 (08:29→17:37)
--- NOTE | 2019-07-16 18:59 | PROGRESS NOTE ---
DATE: 07/16/2019 SUBJECTIVE: Patient has no complaints. OBJECTIVE: Blood pressure 139/70, heart rate of 61, respiratory 16, temperature 98.1 degrees, 100% on room air.Cardiovascular: Regular rate and rhythm. Pulmonary: Bilateral breath sounds, clear to auscultation. GI: Was soft, nontender. Bowel sounds are positive. LABORATORY DATA: White count is 6, H H 11 and 36. Platelets 197,000. Basic was normal. Creatinine is 1.5, which is stable. PROBLEM LIST: 1. Possible small cerebrovascular accident versus transient ischemic attack with the setting of previous cerebrovascular accident with right hemiplegia. She is still having some dysarthria. We will pursue MRI tomorrow. Continue Lipitor. She is not on any antiplatelets. She is not allergic to anything. I am not really sure why she is not on any aspirin. I will start on aspirin. Again, if her MRI is negative, I do not think we need to pursue further workup pending MRI. We will continue to monitor. 2. Urinary tract infection. She has Proteus mirabilis which is sensitive to cefazolin, but resistant to Levaquin. So, we will probably discharge her on Keflex. 3. Hypertension is stable. Continue current medications. 4. Type 2 diabetes. We will continue Lantus and follow. 5. Chronic renal failure, also appears to be stable. No major issues. cc: Joshua Hinton MD [facility]
[2019-07-16] MEDS: ASPIRIN EC PO SCH (19:43)
[2019-07-16] MEDS: LIPITOR PO SCH (21:00)
[2019-07-16] MEDS: LOVENOX SUBQ SCH (21:09)
[2019-07-17] MEDS: ROCEPHIN 1 GM in NS 50 ML IV SCH (00:26)
[2019-07-17] MEDS: NS 1,000 ML IV SCH ×2 (04:27→15:29)
[2019-07-17] MEDS: PROTONIX PO SCH (06:38)
[2019-07-17] MEDS: COZAAR PO SCH (08:47)
[2019-07-17] MEDS: IMDUR PO SCH (08:48)
[2019-07-17] MEDS: COREG PO SCH ×2 (08:48→21:22)
[2019-07-17] MEDS: ASPIRIN EC PO SCH (08:48)
[2019-07-17] MEDS: NORVASC PO SCH (08:48)
[2019-07-17] MEDS: LANTUS INSULIN SUBQ SCH (09:00)
--- NOTE | 2019-07-17 10:07 | Diag Imaging Result Doc PS360 ---
MRI BRAIN W/O CONTRAST - 07/14/2019 INDICATION: tia/cva? COMPARISON: 07/14/2019, 04/04/2018 FINDINGS: There are bilateral areas of restricted diffusion. This is at the left parietal lobe at the posterior central gyrus. Also on the right side, there is some chelly-infarct restricted diffusion at the posterior middle cerebral artery territory, in the periventricular white matter of the temporal lobe. This is in an area of old stroke with overlying laminar cortical necrosis, with clear cortical hyperintense signal on T1. There is also an old infarct with laminar cortical necrosis at the posterior right parietal lobe. No intracranial mass or hemorrhage. There is extensive chronic microvascular ischemia in the periventricular cerebral white matter and in the jacqui and midbrain. IMPRESSION: Severe acute on chronic cerebral ischemia, with bilateral recent infarctions, and extensive chronic ischemic damage to the brain. Electronically signed by Isaias Manuel 07/17/2019 10:05 AM
--- NOTE | 2019-07-17 18:23 | PROGRESS NOTE ---
DATE: 07/17/2019 SUBJECTIVE: Patient has no major complaints. OBJECTIVE: Vital signs: Blood pressure is 151/76, heart rate of 62, respiratory rate of 16, temp 99.1 degrees. Cardiovascular: Regular rate and rhythm. Pulmonary: Bilateral breath sounds. Clear to auscultation. GI: Soft, nontender, nondistended. Bowel sounds are positive. LABORATORY DATA: MRI today shows a fairly large stroke and it is in 2 different areas. There is cortical necrosis and there is a posterior right lobe. Some of that looks acute on chronic. ASSESSMENT AND PLAN: I am going to try to pursue a stroke workup because I do not know if she has had a stroke workup. She had a carotid in August which had some bare minimum things, but we will continue to follow closely. Apparently Social Work has been very diligent, I appreciate that, and they have found a place for her. So tomorrow hopefully we can get her to rehab because she is clinically improved, we just have not finished her workup is the only thing. I would like to get a neurology opinion because she has had recurrent strokes, so I will try to get Dr. Costa to check on her. We will allow for permissive hypertension. She is already on aspirin. I am going to elect to pursue Plavix therapy and we will continue to follow. She also has a Proteus urinary tract infection which is sensitive to Rocephin. We will switch her to Keflex when available. cc: Joshua Hinton MD
[2019-07-17] MEDS: PLAVIX PO SCH (18:48)
[2019-07-17] MEDS: LIPITOR PO SCH (21:22)
[2019-07-17] MEDS: LOVENOX SUBQ SCH (21:22)
[2019-07-18] MEDS: ROCEPHIN 1 GM in NS 50 ML IV SCH ×2 (00:36→23:35)
[2019-07-18] MEDS: NS 1,000 ML IV SCH ×2 (02:05→17:47)
[2019-07-18] MEDS: PROTONIX PO SCH (06:16)
--- NOTE | 2019-07-18 09:15 | Diag Imaging Result Doc PS360 ---
MRA BRAIN W/O CONTRAST - 07/18/2019 INDICATION: cva TECHNIQUE: Noncontrast time of flight technique was used COMPARISON: 04/04/2018 FINDINGS: There is near occlusion of the cavernous portion of the left internal carotid artery, with severe stenosis of about 90% narrowing. There is also narrowing of the basilar artery mainly distally. There is moderate stenosis of the right supraclinoid internal carotid artery with about 50% narrowing. There is origin of the posterior cerebral arteries. The posterior cerebral arteries are fairly smooth. There is some mild narrowing of the proximal, M1 segments of the middle cerebral arteries with about 25% narrowing bilaterally. The posterior branches of the right middle cerebral artery are extremely narrowed. The anterior cerebral arteries are patent. IMPRESSION: Severe arterial stenosis, predominantly affecting the proximal segments including the basilar artery and internal carotid arteries. Consistent with a severe vasculitis. Moyamoya disease is suggested. Electronically signed by Isaias Manuel 07/18/2019 9:13 AM
[2019-07-18] MEDS: ASPIRIN EC PO SCH (09:38)
[2019-07-18] MEDS: COREG PO SCH ×2 (09:38→21:46)
[2019-07-18] MEDS: PLAVIX PO SCH (09:38)
[2019-07-18] MEDS: LANTUS INSULIN SUBQ SCH (09:46)
--- NOTE | 2019-07-18 13:42 | NEUROLOGY CONSULTATION ---
DATE: 07/18/2019 HISTORY OF PRESENT ILLNESS: Ms. Mark is 44 years old and there is question of additional recent stroke. History from the patient is that she noticed suddenly she could not speak clearly and she had trouble swallowing about 2 days ago. This was stable for a day or so and is improved today. She did not notice problems with vision. She believes her right-sided weakness was stable and not worse with the current problem beginning 2 days ago. She did not notice any new motor problem. There was never unconsciousness, altered awareness, collapse. Workup here includes brain MRI showing areas of restricted diffusion consistent with recent infarction bilaterally, left parietal and right parieto-occipital or temporal. In addition, there is old encephalomalacia with laminar cortical necrosis in the right parietal lobe. There is diffuse white matter signal consistent with micro ischemic change across both hemispheres and in the mid brain. Brain MRA shows evidence of diffuse significant mostly proximal atherosclerotic disease bilaterally. Lab shows mild anemia, blood sugars mid 100s, BUN mid-twenties improved to 21, creatinine 1.8, improved to 1.5. Urine drug screen was all negative. She reports family supervises medications and she cannot provide a detailed list from memory. She believes that she takes all her medicines as directed. She is not aware of any recent medication change. She denies illicit drug use. The home medication list recorded on this admission includes amlodipine, atorvastatin, carvedilol, insulin, isosorbide, losartan, pantoprazole, senna, ascites. She has been afebrile. One systolic blood pressure was recorded 91 a few days ago, otherwise systolic blood pressures have been 120 to 170 range. Heart rate has been 50s to 80. PHYSICAL EXAMINATION: On exam, Ms. Mark is awake, alert, attentive. Speech is dysarthric and sometimes difficult to understand. This appeared to be fairly equally lingual, labial and guttural. There was no definite language disturbance on brief bedside testing. I did not test her cognitive function. She has full visual sanchez, but consistently is able to count fingers more correctly and more briskly in the right visual field than on the left. Pupils react to bright light. Extraocular movements are full. Facial motility is diminished bilaterally. Right nasolabial fold is less prominent than the left. Tongue is midline. She can hear. Shoulder shrug is diminished on the right. She has good power in the left limbs. On the right, she has flexion contracture in the arm at the elbow. 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 She has difficulty with right fist to nose. She did well with left [id number]. Plantar response is extensor on the right and equivocal on the left. Power is about 1/5 in the right anterior tibialis and 3/5 in the right iliopsoas. She reports diminished pinprick appreciation consistently over the left limbs compared to the right. Proprioception is a little bit better at the right second finger PIP joint than on the left. I did not ask her to stand or test her gait. IMPRESSION: 1. Reported recent onset of dysphagia and dysarthria without dysphasia. She reports there was not any definite new focal motor deficit. In light of her risk factors, this presentation is most consistent with acute ischemic infarction and could be due to either of the acute lesions identified on MRI. 2. Reported baseline right hemiparesis which has not changed with current event, by her report. This is a relatively pure motor deficit and may correlate with one of the old subcortical lesions noted on MRI. 3. Clinical finding of relative left hemianopia, which she does not seem to recognize. This could be old and, in that case, may be attributed to the old posterior right hemisphere infarction or could be new due to the acute right hemisphere infarction. 4. Reported numbness involving the left limbs more than the right. This may be a new deficit consistent with the acute right hemisphere infarction. PLAN: She has risk factors for cerebrovascular ischemic problems as outlined. Her clinical course has been stable over 48 hours and I do not think we have to do anything urgently. I would continue permitting moderate blood pressure elevation and treat other risk factors aggressively. Echocardiogram was just completed. Further plans will depend on that report and on her clinical course. Thanks for asking Neurology to see Ms. Mark. cc: MD HELEN Boykin III
--- NOTE | 2019-07-18 13:52 | ECHO REPORT ---
ORDER DATE: 07/17/2019 ECHOCARDIOGRAPHIC MEASUREMENTS: 1. Interventricular septum 1.3. 2. Left ventricular posterior wall 0.8. 3. Diastolic diameter 5.7. 4. Left atrium 4.2. 5. Aorta 2.7 cm. 6. Aortic valve leaflets are trileaflet. 7. Mitral valve was normal. 8. Tricuspid valve was normal. 9. Pulmonic valve was normal. There is left atrial enlargement. 10. There is mild tricuspid regurgitation. Peak velocity across the tricuspid valve was 2.5 m/sec. 11. Pulmonary systolic pressure of 33 mmHg. 12. There is moderate mitral regurgitation. Peak velocity across the aortic valve less than 2 m/sec. There is no aortic stenosis or regurgitation. Normal left ventricular cavity size. 13. Mild left ventricular hypertrophy. Estimated ejection fraction of 65%. There is mild hypokinesis in the inferior wall in the mid and base. 14. There is no pericardial effusion or obvious intracardiac mass or thrombus seen. cc: MD Joshua Can MD
--- NOTE | 2019-07-18 19:03 | PROGRESS NOTE ---
DATE: 07/18/2019 SUBJECTIVE: The patient has no major complaints. She is at baseline. OBJECTIVE: Vital signs: Blood pressure 128/115, heart rate of 98, respiratory rate of 19, temperature 98 degrees. Cardiovascular: Regular rate and rhythm. Pulmonary: Bilateral breath sounds clear to auscultation. Gastrointestinal: Soft, nontender, nondistended. Bowel sounds were positive. LABORATORY DATA: No new data today. PROBLEM LIST: Recurrent stroke. Brain imaging raises a question of moyamoya arterial defect. Dr. Costa I guess may not be completely convinced of that recommending other issues. Initially we started aspirin and Plavix, but anticoagulation is not indicated in moyamoya, but maybe anti- platelet is. She had been on aspirin so we have added Plavix, which I think we will continue that for the time being, but in any case, she is stable for discharge. I think she is pretty much at her baseline. She is going to [facility] so she can be followed by Neurology there if they feel neurosurgical consultation is important and that should be fine. A bed is available at facility so we will make plans for her to go over there tomorrow. cc: Joshua Hinton MD
[2019-07-18] MEDS: LIPITOR PO SCH (21:46)
[2019-07-18] MEDS: LOVENOX SUBQ SCH (21:47)
[2019-07-19] MEDS: NS 1,000 ML IV SCH ×2 (02:30→12:09)
[2019-07-19] MEDS: PROTONIX PO SCH (06:06)
[2019-07-19 07:51] VITALS: BP 171/82
[2019-07-19] MEDS: COREG PO SCH (08:48)
[2019-07-19] MEDS: LANTUS INSULIN SUBQ SCH (08:48)
--- NOTE | 2019-07-19 11:16 | DISCHARGE SUMMARY ---
ADMISSION DATE: 07/14/2019 DISCHARGE DATE: 07/19/2019 ADMISSION DIAGNOSES: 1. Cerebrovascular accident versus transient ischemic attack. 2. Chronic kidney disease stage 3. 3. Diabetes mellitus. 4. Hypertension. 5. Urinary tract infection. DISCHARGE DIAGNOSES: 1. Proteus urinary tract infection. 2. Recurrent stroke. 3. Relative left hemianopsia. DIAGNOSTICS: 1. Chest x-ray revealed stable mild cardiomegaly. No evidence of acute chest pathology. 2. CT of the head, multifocal encephalomalacia that can be seen on the previous study. There is a new focus of low attenuation in the right parietal lobe where acute or subacute infarct cannot be excluded. 3. Brain MRI. Severe acute on chronic cerebral ischemia with bilateral recent infarcts. 4. Echocardiogram revealed ejection fraction of 65% with mild inferior hypokinesis, mild left ventricular hypertrophy. No pericardial effusion or obvious intracardiac mass or thrombus seen. 5. Brain MRA. Severe arterial stenosis predominantly affecting the proximal segments including the basilar artery, and internal carotid arteries consistent with severe vasculitis. Moyamoya disease is suggested. CONSULTATIONS: Dr. Neymar Costa, Neurology MICROBIOLOGY: Urine culture revealed Proteus mirabilis. HOSPITAL COURSE: Ms. Mark presented to the emergency room after having a sudden onset of weakness and slurring of speech. She was found to have CVA. She was evaluated by Dr. Costa in Neurology, who felt that her clinical course is being stable. She required no urgent treatment at this time. She was found to have a Proteus urinary tract infection for which she will be discharged, for which she received 5 days of IV antibiotics. Today, she is back to her baseline and ready for discharge to [facility]. DISCHARGE EXAMINATION: Vital Signs: Blood pressure is 169/80 with a heart rate of 65, respirations are 16, and temperature is 98.8 degrees oral with O2 saturations 99 to 100 percent. Cardiovascular: Regular rate and rhythm. S1 and S2 appreciated. Pulmonary: Breath sounds are clear. No increased work of breathing noted. Chest rises and falls symmetric with respiration. Gastrointestinal: Abdomen is soft, nontender, and nondistended with bowel sounds in all 4 quadrants. HEENT: Pupils are equal, round, and react to light. EOMs are intact. She has nasal flaring with right greater than left. No tongue or uvula deviation. Neurologic: Shoulder shrug is diminished on the right. Left [id number] is intact. Right wrist to nose is intact. Speech is dysarthric, sometimes difficult to understand and this is her baseline. DISCHARGE MEDICATIONS: 1. Losartan 100 mg p.o. daily. 2. Isosorbide mononitrate 60 mg p.o. daily. 3. Plavix 75 mg p.o. daily. 4. Aspirin 81 mg p.o. daily. 5. Norvasc 5 mg p.o. daily. 6. Senokot 1 p.o. daily p.r.n. constipation. 7. Protonix 40 mg p.o. daily. 8. Lantus insulin 10 units subcutaneous daily. 9. Carvedilol 25 mg p.o. b.i.d. 10. Lipitor 80 mg p.o. at bedtime. DISPOSITION: She is being discharged to [facility] in stable condition. TIME SPENT: This is a greater than 30 minute discharge. Dictated by AZUCENA Guzman for Francisco Javier Reyes MD cc: AZUCENA Guzman
== END 2019-07-19 13:06 | DRG 65 ==
LOC: ED 17:30 → SUATTDRO 21:52 → 3N 21:52 → 1N 22:07
PROVIDERS: ATTEND Internal Medicine